=== PATIENT | male | born 1955 | race African-American/Black ===

== ENCOUNTER 2017-03-04 08:20 | Inpatient (IN) | payer OTHER ==
[2017-03-04 08:56] VITALS: BMI 25.1
--- NOTE | 2017-03-04 12:15 | HP ---
CIWA Score - CIWA Score Nausea/Vomitin-Mild Nausea/No Vomiting Muscle Tremors: 3 Anxiety: 4-Mod. Anxious/Guarded Agitation: 4-Moderately Restless Paroxysmal Sweats: 3 Orientation: 0-Oriented Tacttile Disturbances: 0-None Auditory Disturbances: 0-None Visual Disturbances: 0-None Headache: 0-None Present CIWA-Ar Total Score: 15 Admission ROS S - HPI Chief Complaint: Withdrawal sx. Allergies/Adverse Reactions: Allergies Allergy/AdvReac Type Severity Reaction Status Date / Time Fish Containing Products Allergy Mild Hives Verified 10/18/13 18:22 lactose Allergy Mild Verified 03/04/17 10:44 No Known Drug Allergies Allergy Verified 10/18/13 18:22 History of Present Illness: 61 y/o man with a long hx. of alcoholism is admitted for detox. Pt. has been in previous detox, denies significant sobriety. Pt. is currently on lasix, aldactone, lactulose & cipro for cirrhosis of the liver with ascites. Pt. reports recent paracenthesis. Exam Limitations: No Limitations - Ebola screening Have you traveled outside of the country in the last 21 days: No Have you had contact with anyone from an Ebola affected area: No Have you been sick,other than usual withdrawal symptoms: No Do you have a fever: No - Review of Systems Constitutional: Diaphoresis EENT: reports: No Symptoms Reported Respiratory: reports: No Symptoms reported Cardiac: reports: No Symptoms Reported GI: reports: Nausea, Abdominal cramping : reports: No Symptoms Reported Musculoskeletal: reports: No Symptoms Reported Integumentary: reports: Sweating Neuro: reports: Seizure (Alcohl withdrawal), Tremors Endocrine: reports: No Symptoms Reported Hematology: reports: No Symptoms Reported Psychiatric: reports: No Sypmtoms Reported Other Systems: Reviewed and Negative Patient History - Patient Medical History Hx Anemia: Yes Hx Asthma: No Hx Chronic Obstructive Pulmonary Disease (COPD): No Hx Cancer: No Hx Cardiac Disorders: No Hx Congestive Heart Failure: No Hx Hypertension: No Hx Hypercholesterolemia: No Hx Pacemaker: No HX Cerebrovascular Accident: No Hx Seizures: Yes (etoh seizures 20 yrs ago.) Hx Dementia: No Hx Diabetes: No Hx Gastrointestinal Disorders: No Hx Liver Disease: Yes (cirrhosis) Hx Genitourinary Disorders: No Hx Sexually Transmitted Disorders: No Hx Renal Disease (ESRD): No Hx Thyroid Disease: No Hx Human Immunodeficiency Virus (HIV): No Hx Hepatitis C: Yes Hx Depression: Yes Hx Suicide Attempt: No Hx Bipolar Disorder: Yes (stopped seroquel,celexa & trazodone) Hx Schizophrenia: No Other Medical History: Lactose intolerance - Patient Surgical History Past Surgical History: Yes Hx Abdominal Surgery: Yes (umbillical hernia repair.) Hx Orthopedic Surgery: Yes (R ankle surgery 2012) Other Surgical History: L KNEE SURGERY 5 YEARS AGO Fx L mandible Anesthesia Reaction: No - PPD History Previous Implant?: Yes Documented Results: Negative w/proof Implanted On Prior [facility] Admission?: Yes Date: 10/20/13 Results: 0 mm PPD to be Administered?: Yes - Smoking Cessation Smoking history: Current every day smoker Have you smoked in the past 12 months: Yes Aproximately how many cigarettes per day: 4 Hx Chewing Tobacco Use: No Initiated information on smoking cessation: Yes 'Breaking Loose' booklet given: 03/04/17 - Substance & Tx. History Hx Alcohol Use: Yes Hx Substance Use: Yes Substance Use Type: Alcohol, Cocaine Hx Substance Use Treatment: Yes (Last detox at [place] can't remember when) - Substances Abused Alcohol Route: Oral Frequency: Daily Amount used: 2-3 pints vodka Age of first use: 13 Date of Last Use: 03/03/17 Cocaine Route: Inhalation Frequency: 1-2 times per week Amount used: $20 Age of first use: 39 Date of Last Use: 02/28/17 Family Disease History - Family Disease History Family Disease History: [place]: Father (prostate ) Admission Physical Exam [facility] - Vital Signs Vital Signs: Vital Signs - 24 hr 03/04/17 08:54 Temperature 98.8 F Pulse Rate 90 Respiratory 18 Rate Blood Pressure 130/82 - Physical General Appearance: Yes: Tremorous, Sweating, Anxious HEENTM: Yes: Within Normal Limits Respiratory: Yes: Chest Non-Tender, Lungs Clear, Normal Breath Sounds Neck: Yes: Supple Breast: Yes: Breast Exam Deferred Cardiology: Yes: Regular Rhythm, Regular Rate, S1, S2 Abdominal: Yes: Normal Bowel Sounds, Non Tender, Soft, Other (everted with shifting dullness) Genitourinary: Yes: Within Normal Limits Back: Yes: Within Normal Limits Musculoskeletal: Yes: Within Normal Limits Extremities: Yes: Tremors, Pedal Edema (2+) Neurological: Yes: Fully Oriented, Alert Integumentary: Yes: Diaphoresis Lymphatic: Yes: Within Normal Limits - Diagnostic (1) Alcohol dependence with uncomplicated withdrawal Current Visit: Yes Status: Acute (2) Cocaine dependence, uncomplicated Current Visit: Yes Status: Acute (3) Hepatic cirrhosis Current Visit: Yes Status: Acute Qualifiers: Hepatic cirrhosis type: alcoholic cirrhosis Ascites presence: with ascites Qualified Code(s): K70.31 - Alcoholic cirrhosis of liver with ascites (4) Edema of lower extremity Current Visit: Yes Status: Acute (5) Nicotine dependence Current Visit: No Status: Acute Qualifiers: Nicotine product type: cigarettes Substance use status: uncomplicated Qualified Code(s): F17.210 - Nicotine dependence, cigarettes, uncomplicated (6) Hep C w/o coma, chronic Current Visit: Yes Status: Acute [facility] Breath Alcohol Content Breath Alcohol Content: 0 Urine Drug Screen - Results Drug Screen Negative: No Urine Drug Screen Results: FÁTIMA-Cocaine
[2017-03-04] MEDS ORDERED: LOPERAMIDE HCL 2 MG CAPSULE PO PRN (12:34)
[2017-03-04] MEDS ORDERED: diphenhydrAMINE HCL 50 MG CAPSULE PO PRN (12:34)
[2017-03-04] MEDS ORDERED: NICOTINE POLACRILEX 2 MG GUM BUC PRN (12:34)
[2017-03-04] MEDS ORDERED: guaiFENesin/D-METHORPHAN HB 10 ML UNIT-DOSE CUPS PO PRN (12:34)
[2017-03-04] MEDS ORDERED: ACETAMINOPHEN 325 MG TABLET (FP) PO PRN (12:34)
[2017-03-04] MEDS ORDERED: MENTHOL/PHENOL 1 EACH UD MM PRN (12:34)
[2017-03-04] MEDS ORDERED: IBUPROFEN 400 MG TABLET (FP) PO PRN (12:34)
[2017-03-04] MEDS ORDERED: chlordiazePOXIDE HCL 25 MG CAPSULE PO PRN (12:34)
[2017-03-04] MEDS ORDERED: MAG HYDROX/AL HYDROX/SIMETH 30 ML UNIT-DOSE CUP PO PRN (12:34)
[2017-03-04] MEDS ORDERED: MAGNESIUM CITRATE 300 ML BOTTLE PO PRN (12:34)
[2017-03-04] MEDS ORDERED: hydrOXYzine PAMOATE 50 MG CAPSULE (FP) PO PRN (12:34)
[2017-03-04] MEDS ORDERED: P-EPHED 60MG/TRIPROLIDI 2.5MG TABLET PO PRN (12:34)
[2017-03-04] MEDS ORDERED: MAGNESIUM HYDROX 2400MG/30ML ORAL SUSPENSION 30 ML CUP PO PRN (12:34)
[2017-03-04] MEDS ORDERED: chlordiazePOXIDE HCL 25 MG CAPSULE PO ONE (13:00)
[2017-03-04] MEDS: FUROSEMIDE 20 MG TABLET (FP) PO SCH (13:31)
[2017-03-04] MEDS: NICOTINE 14 MG/24 HOURS TOPICAL PATCH TD SCH (13:32)
[2017-03-04 16:54] LABS: URINE APPEARANCE CLOUDY; URINE BLOOD NEGATIVE (NEGATIVE); URINE COLOR AMBER; URINE GLUCOSE (UA) NEGATIVE (NEGATIVE); URINE KETONE NEGATIVE (NEGATIVE); URINE LEUK ESTERASE NEGATIVE (NEGATIVE); URINE NITRITE NEGATIVE (NEGATIVE); URINE PROTEIN NEGATIVE (NEGATIVE); URINE UROBILINOGEN 4.0 E.U/dl mg/dL (0.2-1.0)
[2017-03-04] MEDS: SPIRONOLACTONE 25 MG TABLET (FP) PO SCH (19:20)
[2017-03-04] MEDS: CIPROFLOXACIN HCL 500 MG PO SCH (19:20)
[2017-03-04] MEDS: chlordiazePOXIDE HCL 25 MG CAPSULE PO SCH ×2 (19:20→22:08)
--- NOTE | 2017-03-04 19:26 | CONSULT ---
[facility] Psychiatric Consult - Data Date of interview: 03/04/17 Admission source: [facility] Identifying data: Readmission to [facility] for this 61 y/o AA male seeking detox treatment on for alcohol and cocaine dependence.Patient is ,a father of two,homeless,unemployed and supported on SSI benefits. Substance Abuse History: Discussed with patient in this interview.Mr Overton confirms this report. Smoking Cessation. Smoking history: Current every day smoker. Have you smoked in the past 12 months: Yes. Aproximately how many cigarettes per day: 4. Hx Chewing Tobacco Use: No. Initiated information on smoking cessation: Yes. 'Breaking Loose' booklet given: 03/04/17. - Substance & Tx. History. Hx Alcohol Use: Yes. Hx Substance Use: Yes. Substance Use Type : Alcohol, Cocaine. Hx Substance Use Treatment: Yes (Last detox at [place] can 't remember when). - Substances Abused. Alcohol. Route: Oral. Frequency: Daily. Amount used: 2-3 pints vodka. Age of first use: 13. Date of Last Use: 03/03/17. Cocaine. Route: Inhalation. Frequency: 1-2 times per week. Amount used: $20. Age of first use: 39. Date of Last Use: 02/28/17 Medical History: Consistent with hepatitis C,liver cirrhosis and anemia.Noted history of umbilical herniorraphy and orthosurgery (right ankle + left knee ++ fracture of left mandible). Psychiatric History: Patient reports a psychiatric hospitalization at [facility] (2005).Diagnosed with Bipolar Disorder.Lost to follow up for several years.Mr Overton reports that he has been off psychotropic medications (own decision) for many years.No OPD care.Denies history of suicide attempts. Physical/Sexual Abuse/Trauma History: Patient denies. Additional Comment: Urine Drug Screen Results: FÁTIMA-Cocaine.Noted. Mental Status Exam - Mental Status Exam Alert and Oriented to: Time, Place, Person Cognitive Function: Good Patient Appearance: Well Groomed Mood: Withdrawn, Hopeful, Euthymic Affect: Normal Range Patient Behavior: Fatigued, Appropriate, Cooperative Speech Pattern: Clear Voice Loudness: Normal Thought Process: Goal Oriented Thought Disorder: Not Present Hallucinations: Denies Suicidal Ideation: Denies Homicidal Ideation: Denies Insight/Judgement: Poor Sleep: Poorly, Difficulty falling asleep Appetite: Good Muscle strength/Tone: Normal Gait/Station: Normal Psychiatric Findings - Problem List (Maurice 1, 2,3) (1) Alcohol dependence with uncomplicated withdrawal Current Visit: Yes Status: Acute (2) Cocaine dependence, uncomplicated Current Visit: Yes Status: Acute (3) Nicotine dependence Current Visit: Yes Status: Acute Qualifiers: Nicotine product type: cigarettes Substance use status: uncomplicated Qualified Code(s): F17.210 - Nicotine dependence, cigarettes, uncomplicated (4) Substance induced mood disorder Current Visit: Yes Status: Acute (5) Hep C w/o coma, chronic Current Visit: Yes Status: Chronic (6) Hepatic cirrhosis Current Visit: Yes Status: Chronic Qualifiers: Hepatic cirrhosis type: alcoholic cirrhosis Ascites presence: with ascites Qualified Code(s): K70.31 - Alcoholic cirrhosis of liver with ascites (7) Insomnia Current Visit: Yes Status: Acute - Initial Treatment Plan Initial Treatment Plan: Psychoeducation.Detoxification.Ambien 5 mg po hs prn.Parasomnias and benefits of sleep hygiene are discussed with patient.He is in agreement with this careplan.Observation.
[2017-03-04] MEDS ORDERED: ZOLPIDEM TARTRATE 5 MG TABLET PO PRN (22:00)
[2017-03-04] MEDS: THIAMINE HCL 100 MG TABLET (FP) PO SCH (22:08)
[2017-03-05] MEDS: chlordiazePOXIDE HCL 25 MG CAPSULE PO SCH ×4 (05:31→22:13)
[2017-03-05] MEDS: FUROSEMIDE 20 MG TABLET (FP) PO SCH ×2 (05:31→15:08)
[2017-03-05] MEDS: CIPROFLOXACIN HCL 500 MG PO SCH (05:32)
[2017-03-05] MEDS: PRENATAL VITAMINS W/ FOLIC ACID TABLET (FP) PO SCH (10:09)
[2017-03-05] MEDS: SPIRONOLACTONE 25 MG TABLET (FP) PO SCH ×2 (10:10→17:33)
[2017-03-05] MEDS: NICOTINE 14 MG/24 HOURS TOPICAL PATCH TD SCH (10:10)
[2017-03-05 11:00] LABS: MCH 30.6 pg (25.7-33.7); MCHC 32.5 g/dl (32.0-35.9); MEAN PLT VOLUME 10.4 fl (7.5-11.1); PLATELET COUNT 54 K/MM3 (134-434); RDW 22.5 % (11.9-15.9); WHITE BLOOD COUNT 2.5 K/mm3 (4.0-10.0)
[2017-03-05 11:23] LABS: ALBUMIN 1.3 g/dl (3.4-5.0); ALK PHOS 139 U/L (45-117); ANION GAP 6 (8-16); BILIRUBIN,TOTAL 4.6 mg/dL (0.2-1.0); CALCIUM 7.8 mg/dL (8.5-10.1); CO2 27 mmol/L (21-32); CREATININE 0.7 mg/dL (0.7-1.3); GLUCOSE,RANDOM 107 mg/dL (74-106); SGOT/AST 75 U/L (15-37); SGPT/ALT 28 U/L (12-78); TOT PROT 6.8 g/dl (6.4-8.2)
[2017-03-05 12:19] LABS: HIV 1 & 2 AB NEGATIVE; HIV 1 AGp24 NEGATIVE
--- NOTE | 2017-03-05 15:04 | PN ---
S CIWA - CIWA Score Nausea/Vomitin-Mild Nausea/No Vomiting Muscle Tremors: 5 Anxiety: 3 Agitation: 2 Paroxysmal Sweats: 3 Orientation: 0-Oriented Tacttile Disturbances: 0-None Auditory Disturbances: 2-Mild Harshness/Frighten Visual Disturbances: 0-None Headache: 0-None Present CIWA-Ar Total Score: 16 S Progress Note (SOAP) Subjective: Sweating, Anxious, Tremors. Objective: PT. A & O X 3, OBSERVED AMBULATING ON UNIT. NO ACUTE DISTRESS. 03/05/17 15:02 Vital Signs Temperature 97.0 F L 03/05/17 13:44 Pulse Rate 84 03/05/17 13:44 Respiratory Rate 20 03/05/17 13:44 Blood Pressure 117/76 03/05/17 13:44 O2 Sat by Pulse Oximetry (%) Laboratory Tests 03/04/17 03/05/17 03/05/17 15:26 08:00 08:00 WBC 2.5 L RBC 2.96 L Hgb 9.0 L D Hct 27.8 L D MCV 94.0 MCH 30.6 D MCHC 32.5 RDW 22.5 H D Plt Count 54 L MPV 10.4 Sodium Potassium Chloride Carbon Dioxide Anion Gap BUN Creatinine Creat Clearance w eGFR Random Glucose Calcium Total Bilirubin AST ALT Alkaline Phosphatase Total Protein Albumin Urine Color Roberta Urine Appearance Cloudy Urine pH 8.0 D Ur Specific [place] 1.015 Urine Protein Negative Urine Glucose (UA) Negative Urine Ketones Negative Urine Blood Negative Urine Nitrite Negative Urine Bilirubin 2.0 Urine Urobilinogen 4.0 e.u/dl Ur Leukocyte Esterase Negative RPR Titer HIV 1&2 Antibody Screen Negative HIV P24 Antigen Negative 03/05/17 03/05/17 08:00 08:00 WBC RBC Hgb Hct MCV MCH MCHC RDW Plt Count MPV Sodium 135 L Potassium 3.9 Chloride 102 Carbon Dioxide 27 Anion Gap 6 L BUN 10 Creatinine 0.7 Creat Clearance w eGFR > 60 Random Glucose 107 H Calcium 7.8 L Total Bilirubin 4.6 H D AST 75 H ALT 28 D Alkaline Phosphatase 139 H D Total Protein 6.8 Albumin 1.3 L D Urine Color Urine Appearance Urine pH Ur Specific [place] Urine Protein Urine Glucose (UA) Urine Ketones Urine Blood Urine Nitrite Urine Bilirubin Urine Urobilinogen Ur Leukocyte Esterase RPR Titer Nonreactive HIV 1&2 Antibody Screen HIV P24 Antigen LABS NOTED. Assessment: 03/05/17 15:03 WITHDRAWAL SYMPTOMS. Plan: CONTINUE DETOX. START FEOSOL, 325 MG PO TID WITH MEALS. REPEAT CBC ON 03/07/2017 FOR ABNORMAL ADMISSION VALUES.
[2017-03-05] MEDS: FERROUS SO4 325 MG TABLET (FP) PO SCH (17:33)
--- NOTE | 2017-03-05 18:46 | EKG ---
Test Reason : Blood Pressure : / mmHG Vent. Rate : 063 BPM Atrial Rate : 063 BPM P-R Int : 150 ms QRS Dur : 088 ms QT Int : 448 ms P-R-T Axes : 059 -11 001 degrees QTc Int : 458 ms NORMAL SINUS RHYTHM WITH SINUS ARRHYTHMIA NONSPECIFIC T WAVE ABNORMALITY ABNORMAL ECG NO PREVIOUS ECGS AVAILABLE Confirmed by NIKKIE ZAMORA MD ([id number]) on 03/05/2017 6:45:47 PM Referred By: Confirmed By:NIKKIE ZAMORA MD
[2017-03-05] MEDS: THIAMINE HCL 100 MG TABLET (FP) PO SCH (22:13)
[2017-03-06] MEDS: chlordiazePOXIDE HCL 25 MG CAPSULE PO SCH ×2 (05:40→10:21)
[2017-03-06] MEDS: FUROSEMIDE 20 MG TABLET (FP) PO SCH ×2 (05:40→14:57)
[2017-03-06] MEDS: CIPROFLOXACIN HCL 500 MG PO SCH (06:11)
[2017-03-06] MEDS: FERROUS SO4 325 MG TABLET (FP) PO SCH ×3 (07:36→17:18)
[2017-03-06] MEDS: SPIRONOLACTONE 25 MG TABLET (FP) PO SCH ×2 (10:21→17:20)
[2017-03-06] MEDS: NICOTINE 14 MG/24 HOURS TOPICAL PATCH TD SCH (10:21)
[2017-03-06] MEDS: PRENATAL VITAMINS W/ FOLIC ACID TABLET (FP) PO SCH (10:21)
--- NOTE | 2017-03-06 14:39 | PN ---
S Progress Note (SOAP) Subjective: Interrupted sleep due to water pill as per patient, (patient stated he is taking water pill for edema in his legs and that he was Rx 2 water pills prior to coming here but the swelling in his legs have improved and he was only taking one of the water pill PRN at home. He reports swelling in legs due to sleeping in chair at his senior care); anxious, nausea, sweating Objective: 03/06/17 14:36 Last Vital Signs Temp Pulse Resp BP Pulse Ox 98.8 F 98 H 18 117/78 03/06/17 13:36 03/06/17 13:36 03/06/17 13:36 03/06/17 13:36 Laboratory Tests 03/04/17 03/05/17 03/05/17 15:26 08:00 08:00 WBC 2.5 L RBC 2.96 L Hgb 9.0 L D Hct 27.8 L D MCV 94.0 MCH 30.6 D MCHC 32.5 RDW 22.5 H D Plt Count 54 L MPV 10.4 Sodium Potassium Chloride Carbon Dioxide Anion Gap BUN Creatinine Creat Clearance w eGFR Random Glucose Calcium Total Bilirubin AST ALT Alkaline Phosphatase Total Protein Albumin Urine Color Roberta Urine Appearance Cloudy Urine pH 8.0 D Ur Specific [place] 1.015 Urine Protein Negative Urine Glucose (UA) Negative Urine Ketones Negative Urine Blood Negative Urine Nitrite Negative Urine Bilirubin 2.0 Urine Urobilinogen 4.0 e.u/dl Ur Leukocyte Esterase Negative RPR Titer HIV 1&2 Antibody Screen Negative HIV P24 Antigen Negative 03/05/17 03/05/17 08:00 08:00 WBC RBC Hgb Hct MCV MCH MCHC RDW Plt Count MPV Sodium 135 L Potassium 3.9 Chloride 102 Carbon Dioxide 27 Anion Gap 6 L BUN 10 Creatinine 0.7 Creat Clearance w eGFR > 60 Random Glucose 107 H Calcium 7.8 L Total Bilirubin 4.6 H D AST 75 H ALT 28 D Alkaline Phosphatase 139 H D Total Protein 6.8 Albumin 1.3 L D Urine Color Urine Appearance Urine pH Ur Specific [place] Urine Protein Urine Glucose (UA) Urine Ketones Urine Blood Urine Nitrite Urine Bilirubin Urine Urobilinogen Ur Leukocyte Esterase RPR Titer Nonreactive HIV 1&2 Antibody Screen HIV P24 Antigen Labs noted: wbc 2.5, rbc 2.96, h/h 9/27.8, plt 54, total bilirubin 4.6 Assessment: 03/06/17 14:40 Withdrawal symptoms Noted with pancytopenia and hyperbilirubinemia Plan: Continue detox Pancytopenia: monitor for s/sx of infection, encouraged good hand washing with soap and water, repeat CBC and send iron studies in AM Hyperbilirubinemia possibly due to hepatitis C: repeat LFTs
[2017-03-06] MEDS: chlordiazePOXIDE 5 MG CAPSULE PO SCH ×2 (17:18→22:05)
[2017-03-06] MEDS: THIAMINE HCL 100 MG TABLET (FP) PO SCH (22:05)
[2017-03-07] MEDS: chlordiazePOXIDE 5 MG CAPSULE PO SCH ×2 (05:32→10:23)
[2017-03-07] MEDS: FUROSEMIDE 20 MG TABLET (FP) PO SCH ×2 (05:32→14:59)
[2017-03-07] MEDS: CIPROFLOXACIN HCL 500 MG PO SCH (05:35)
[2017-03-07] MEDS: FERROUS SO4 325 MG TABLET (FP) PO SCH ×3 (07:22→17:17)
[2017-03-07 10:04] LABS: MCH 30.2 pg (25.7-33.7); MCHC 31.8 g/dl (32.0-35.9); MEAN CELL VOLUME 94.9 fl (80-96); MEAN PLT VOLUME 10.6 fl (7.5-11.1); PLATELET COUNT 70 K/MM3 (134-434); RDW 23.3 % (11.9-15.9); WHITE BLOOD COUNT 3.3 K/mm3 (4.0-10.0)
[2017-03-07] MEDS: NICOTINE 14 MG/24 HOURS TOPICAL PATCH TD SCH (10:23)
[2017-03-07] MEDS: SPIRONOLACTONE 25 MG TABLET (FP) PO SCH ×2 (10:23→17:17)
[2017-03-07] MEDS: PRENATAL VITAMINS W/ FOLIC ACID TABLET (FP) PO SCH (10:23)
[2017-03-07 10:35] LABS: ALBUMIN 1.6 g/dl (3.4-5.0); BILIRUBIN,DIRECT 3.8 mg/dL (0.0-0.2); BILIRUBIN,TOTAL 4.7 mg/dL (0.2-1.0); TOT PROT 8.1 g/dl (6.4-8.2)
--- NOTE | 2017-03-07 12:35 | PN ---
[facility] Progress Note (SOAP) Subjective: Anxious. Objective: PT. A & O X 3, OBSERVED AMBULATING ON UNIT. NO ACUTE DISTRESS. 03/07/17 12:33 Vital Signs Temperature 98.5 F 03/07/17 09:26 Pulse Rate 84 03/07/17 09:26 Respiratory Rate 18 03/07/17 09:26 Blood Pressure 109/77 03/07/17 09:26 O2 Sat by Pulse Oximetry (%) Laboratory Tests 03/04/17 03/05/17 03/05/17 15:26 08:00 08:00 WBC 2.5 L RBC 2.96 L Hgb 9.0 L D Hct 27.8 L D MCV 94.0 MCH 30.6 D MCHC 32.5 RDW 22.5 H D Plt Count 54 L MPV 10.4 Neutrophils % Lymphocytes % Sodium Potassium Chloride Carbon Dioxide Anion Gap BUN Creatinine Creat Clearance w eGFR Random Glucose Calcium Total Bilirubin Direct Bilirubin AST ALT Alkaline Phosphatase Total Protein Albumin Vitamin B12 Serum Folate Urine Color Roberta Urine Appearance Cloudy Urine pH 8.0 D Ur Specific [place] 1.015 Urine Protein Negative Urine Glucose (UA) Negative Urine Ketones Negative Urine Blood Negative Urine Nitrite Negative Urine Bilirubin 2.0 Urine Urobilinogen 4.0 e.u/dl Ur Leukocyte Esterase Negative RPR Titer HIV 1&2 Antibody Screen Negative HIV P24 Antigen Negative 03/05/17 03/05/17 03/07/17 08:00 08:00 07:00 WBC 3.3 L D RBC 3.42 L Hgb 10.4 L D Hct 32.5 L D MCV 94.9 MCH 30.2 MCHC 31.8 L RDW 23.3 H Plt Count 70 L D MPV 10.6 Neutrophils % Y Lymphocytes % Y Sodium 135 L Potassium 3.9 Chloride 102 Carbon Dioxide 27 Anion Gap 6 L BUN 10 Creatinine 0.7 Creat Clearance w eGFR > 60 Random Glucose 107 H Calcium 7.8 L Total Bilirubin 4.6 H D Direct Bilirubin AST 75 H ALT 28 D Alkaline Phosphatase 139 H D Total Protein 6.8 Albumin 1.3 L D Vitamin B12 Serum Folate Urine Color Urine Appearance Urine pH Ur Specific [place] Urine Protein Urine Glucose (UA) Urine Ketones Urine Blood Urine Nitrite Urine Bilirubin Urine Urobilinogen Ur Leukocyte Esterase RPR Titer Nonreactive HIV 1&2 Antibody Screen HIV P24 Antigen 03/07/17 07:00 WBC RBC Hgb Hct MCV MCH MCHC RDW Plt Count MPV Neutrophils % Lymphocytes % Sodium Potassium Chloride Carbon Dioxide Anion Gap BUN Creatinine Creat Clearance w eGFR Random Glucose Calcium Total Bilirubin 4.7 H Direct Bilirubin 3.8 H D AST 83 H ALT 33 Alkaline Phosphatase 148 H Total Protein 8.1 Albumin 1.6 L D Vitamin B12 1917 H Serum Folate 17 Urine Color Urine Appearance Urine pH Ur Specific [place] Urine Protein Urine Glucose (UA) Urine Ketones Urine Blood Urine Nitrite Urine Bilirubin Urine Urobilinogen Ur Leukocyte Esterase RPR Titer HIV 1&2 Antibody Screen HIV P24 Antigen LABS NOTED. RESULTS OF REPEAT CBC AND COMP. META. NOTED. IRON STUDIES RESULTS PENDING. 03/07/17 12:36 Assessment: 03/07/17 12:34 WITHDRAWAL SYMPTOMS. Plan: CONTINUE DETOX. COPIES OF ALL LABS DRAWN WHILE ADMITTED FOR DETOX GIVEN TO PATIENT TO TAKE TO [facility] WITH HIM FOR FURTHER MEDICAL EVALUATION AFTER DETOX.
[2017-03-07 12:43] LABS: ANISOCYTOSIS 2+; MACROCYTOSIS 2+; MICROCYTOSIS FEW; TARGET CELLS 2+
[2017-03-07 12:44] LABS: PLATELET ESTIMATE DECREASED; REACTIVE LYMPHOCYTES 1 % (0-80); TOTAL CELLS COUNTED 100
[2017-03-07] MEDS: chlordiazePOXIDE HCL 10 MG CAPSULE PO SCH ×2 (17:17→22:05)
[2017-03-07] MEDS: THIAMINE HCL 100 MG TABLET (FP) PO SCH (22:05)
[2017-03-08] MEDS: chlordiazePOXIDE HCL 10 MG CAPSULE PO SCH (05:34)
[2017-03-08] MEDS: FUROSEMIDE 20 MG TABLET (FP) PO SCH (05:34)
[2017-03-08] MEDS: CIPROFLOXACIN HCL 500 MG PO SCH (05:34)
[2017-03-08 06:06] LABS: SERUM IRON 105 ug/dL (38-169); TOTAL IRON BINDING CAPACITY 220 ug/dL (250-450); UIBC 115 ug/dL (111-343)
[2017-03-08] MEDS: FERROUS SO4 325 MG TABLET (FP) PO SCH (07:28)
[2017-03-08 09:12] VITALS: BP 122/88; PULSE 87; TEMP 97.3
[2017-03-08] MEDS: SPIRONOLACTONE 25 MG TABLET (FP) PO SCH (09:12)
[2017-03-08] MEDS: PRENATAL VITAMINS W/ FOLIC ACID TABLET (FP) PO SCH (09:13)
--- NOTE | 2017-03-08 12:40 | DS ---
[facility] Detox Discharge Summary Admission Date: 03/04/17 Discharge Date: 03/08/17 - History Present History: Alcohol Dependence Additional Comments: PATIENT ELECTING TO GO HOME. PATIENT ADVISED TO FOLLOW-UP WITH LOCAL 12-STEP / AA PROGRAMS FOR AFTERCARE. PATIENT ADVISED TO COMPLETE FULL COURSE OF ANTIBIOTIC (CIPROFLOXACIN) PRESCRIBED TO HIM PRIOR TO AND DURING ADMISSION TO DETOX. PATIENT WAS DISCHARGED FROM UNIT IN STABLE MEDICAL CONDITION. Pertinent Past History: Hep C, Hepatic Cirrhosis, Edema of Lower Extremity, Anemia, Bipolar Disorder, Depression. - Physical Exam Results Vital Signs: Vital Signs Temperature 97.3 F L 03/08/17 09:11 Pulse Rate 87 03/08/17 09:11 Respiratory Rate 18 03/08/17 09:11 Blood Pressure 122/88 03/08/17 09:11 O2 Sat by Pulse Oximetry (%) Pertinent Admission Physical Exam Findings: WITHDRAWAL SYMPTOMS. Laboratory Tests 03/04/17 03/05/17 03/05/17 15:26 08:00 08:00 WBC 2.5 L RBC 2.96 L Hgb 9.0 L D Hct 27.8 L D MCV 94.0 MCH 30.6 D MCHC 32.5 RDW 22.5 H D Plt Count 54 L MPV 10.4 Neutrophils % Neutrophils % (Manual) Lymphocytes % Lymphocytes % (Manual) Monocytes % (Manual) Eosinophils % (Manual) Platelet Estimate Anisocytosis Microcytosis Macrocytosis Target Cells Sodium Potassium Chloride Carbon Dioxide Anion Gap BUN Creatinine Creat Clearance w eGFR Random Glucose Calcium Iron TIBC Iron Saturation Total Bilirubin Direct Bilirubin AST ALT Alkaline Phosphatase Total Protein Albumin Vitamin B12 Serum Folate Urine Color Roberta Urine Appearance Cloudy Urine pH 8.0 D Ur Specific [place] 1.015 Urine Protein Negative Urine Glucose (UA) Negative Urine Ketones Negative Urine Blood Negative Urine Nitrite Negative Urine Bilirubin 2.0 Urine Urobilinogen 4.0 e.u/dl Ur Leukocyte Esterase Negative RPR Titer HIV 1&2 Antibody Screen Negative HIV P24 Antigen Negative 03/05/17 03/05/17 03/07/17 08:00 08:00 07:00 WBC 3.3 L D RBC 3.42 L Hgb 10.4 L D Hct 32.5 L D MCV 94.9 MCH 30.2 MCHC 31.8 L RDW 23.3 H Plt Count 70 L D MPV 10.6 Neutrophils % Y Neutrophils % (Manual) 41 L Lymphocytes % Y Lymphocytes % (Manual) 40 Monocytes % (Manual) 15 H Eosinophils % (Manual) 3 Platelet Estimate Decreased Anisocytosis 2+ Microcytosis Few Macrocytosis 2+ Target Cells 2+ Sodium 135 L Potassium 3.9 Chloride 102 Carbon Dioxide 27 Anion Gap 6 L BUN 10 Creatinine 0.7 Creat Clearance w eGFR > 60 Random Glucose 107 H Calcium 7.8 L Iron TIBC Iron Saturation Total Bilirubin 4.6 H D Direct Bilirubin AST 75 H ALT 28 D Alkaline Phosphatase 139 H D Total Protein 6.8 Albumin 1.3 L D Vitamin B12 Serum Folate Urine Color Urine Appearance Urine pH Ur Specific [place] Urine Protein Urine Glucose (UA) Urine Ketones Urine Blood Urine Nitrite Urine Bilirubin Urine Urobilinogen Ur Leukocyte Esterase RPR Titer Nonreactive HIV 1&2 Antibody Screen HIV P24 Antigen 03/07/17 03/07/17 07:00 07:00 WBC RBC Hgb Hct MCV MCH MCHC RDW Plt Count MPV Neutrophils % Neutrophils % (Manual) Lymphocytes % Lymphocytes % (Manual) Monocytes % (Manual) Eosinophils % (Manual) Platelet Estimate Anisocytosis Microcytosis Macrocytosis Target Cells Sodium Potassium Chloride Carbon Dioxide Anion Gap BUN Creatinine Creat Clearance w eGFR Random Glucose Calcium Iron 105 TIBC 220 L Iron Saturation 48 Total Bilirubin 4.7 H Direct Bilirubin 3.8 H D AST 83 H ALT 33 Alkaline Phosphatase 148 H Total Protein 8.1 Albumin 1.6 L D Vitamin B12 1917 H Serum Folate 17 Urine Color Urine Appearance Urine pH Ur Specific [place] Urine Protein Urine Glucose (UA) Urine Ketones Urine Blood Urine Nitrite Urine Bilirubin Urine Urobilinogen Ur Leukocyte Esterase RPR Titer HIV 1&2 Antibody Screen HIV P24 Antigen LABS NOTED. - Treatment Hospital Course: Detox Protocol Followed, Detoxed Safely, Responded well, Discharged Condition Good Patient has Accepted a Rehab Referral to: PT. GOING HOME. ADVISED TO FOLLOW-UP WITH LOCAL 12-STEP/AA PROGRAMS. - Medication Discharge Medications: Ambulatory Orders Ciprofloxacin HCl [Cipro] 500 mg PO DAILY 03/04/17 Furosemide [Lasix -] 40 mg PO DAILY 03/04/17 Lactulose 30 ml PO DAILY 03/04/17 Spironolactone [Aldactone] 100 mg PO DAILY 03/04/17 - Diagnosis (1) Alcohol dependence with uncomplicated withdrawal Status: Acute (2) Bipolar depression Status: Chronic (3) Cocaine dependence, uncomplicated Status: Acute (4) Edema of lower extremity Status: Acute (5) Insomnia Status: Acute Qualifiers: Insomnia type: unspecified Qualified Code(s): G47.00 - Insomnia, unspecified (6) Nicotine dependence Status: Chronic Qualifiers: Nicotine product type: cigarettes Substance use status: uncomplicated Qualified Code(s): F17.210 - Nicotine dependence, cigarettes, uncomplicated (7) Substance induced mood disorder Status: Acute (8) Hep C w/o coma, chronic Status: Chronic (9) Hepatic cirrhosis Status: Chronic Qualifiers: Hepatic cirrhosis type: alcoholic cirrhosis Ascites presence: with ascites Qualified Code(s): K70.31 - Alcoholic cirrhosis of liver with ascites - AMA Did Patient Leave Against Medical Advice: No
== END 2017-03-08 09:31 | disposition home or self-care (01) | DRG 774 ==
LOC: YASAS 08:20 → Y3N 12:52
PROVIDERS: ADMIT Internal Medicine; ATTEND Internal Medicine
PROC: HZ2ZZZZ Detoxification Services for Substance Abuse Treatment (ICD-10-PCS; principal; 2017-03-08)
DX: F10.230 Alcohol dependence with withdrawal, uncomplicated (principal); F14.20 Cocaine dependence, uncomplicated; F17.210 Nicotine dependence, cigarettes, uncomplicated; F19.24 Other psychoactive substance dependence with psychoactive substance-induced mood disorder; F31.9 Bipolar disorder, unspecified; G47.00 Insomnia, unspecified; R60.0 Localized edema; B18.2 Chronic viral hepatitis C; K70.31 Alcoholic cirrhosis of liver with ascites
CPT/HCPCS: 36415; 80053; 80076; 81003; 82607; 82746; 83540; 83550; 85025; 85027; 86593; 87389; 93005; 93010

== ENCOUNTER 2017-05-04 19:10 | Inpatient (IN) | payer OTHER ==
[2017-05-04 19:59] VITALS: BMI 24.3
--- NOTE | 2017-05-04 20:23 | HP ---
Admission [facility] Chief Complaint: i am here for rehab from alcohol and cocaine Allergies/Adverse Reactions: Allergies Allergy/AdvReac Type Severity Reaction Status Date / Time Fish Containing Products Allergy Mild Hives Verified 10/18/13 18:22 lactose Allergy Mild Verified 05/04/17 20:07 No Known Drug Allergies Allergy Verified 10/18/13 18:22 History of Present Illness: this 61 years old male iwth alcohol dependence and cocaine dependence,seeking rehab,last treatment [facility] 03/04/17 to 03/08/17 hepatitis c loss of lower denture and eye glass in [place] 2 months ago admitted to [facility] for depression from 04/08/17 to 05/04/17 lonest period sobriety 3 and a half years Exam Limitations: No Limitations - Ebola screening Have you traveled outside of the country in the last 21 days: No Have you had contact with anyone from an Ebola affected area: No Have you been sick,other than usual withdrawal symptoms: No Do you have a fever: No - Review of Systems Constitutional: No Symptoms Reported EENT: reports: Dental Problems (loss lower denture 2 months) Respiratory: reports: No Symptoms reported Cardiac: reports: No Symptoms Reported GI: reports: No Symptoms Reported : reports: No Symptoms Reported Musculoskeletal: reports: No Symptoms Reported Integumentary: reports: No Symptoms Reported Neuro: reports: No Symptoms reported Endocrine: reports: No Symptoms Reported Hematology: reports: No Symptoms Reported Psychiatric: reports: No Sypmtoms Reported, Judgement Intact, Mood/Affect Appropiate, Depressed Patient History - Patient Medical History Hx Anemia: Yes (no med) Hx Asthma: No Hx Chronic Obstructive Pulmonary Disease (COPD): No Hx Cancer: No Hx Cardiac Disorders: No Hx Congestive Heart Failure: No Hx Hypertension: No Hx Hypercholesterolemia: No Hx Pacemaker: No HX Cerebrovascular Accident: No Hx Seizures: Yes (etoh seizures 20 yrs ago.) Hx Dementia: No Hx Diabetes: No Hx Gastrointestinal Disorders: No Hx Liver Disease: Yes (cirrhosis) Hx Genitourinary Disorders: No Hx Sexually Transmitted Disorders: No Hx Renal Disease (ESRD): No Hx Thyroid Disease: No Hx Human Immunodeficiency Virus (HIV): No Hx Hepatitis C: Yes (no treatment) Hx Depression: Yes Hx Suicide Attempt: No Hx Bipolar Disorder: Yes (stopped seroquel,celexa & trazodone) Hx Schizophrenia: No Other Medical History: no suicidal,no homicidal,umbilical hernia - Patient Surgical History Past Surgical History: Yes Hx Abdominal Surgery: No Hx Orthopedic Surgery: Yes (R ankle surgery 2013) Other Surgical History: L KNEE SURGERY 5 YEARS AGO Fx L mandible Anesthesia Reaction: No - PPD History Previous Implant?: Yes Documented Results: Negative w/proof Date: 03/06/17 Results: 0 mm PPD to be Administered?: No - Smoking Cessation Smoking history: Current every day smoker Have you smoked in the past 12 months: Yes Aproximately how many cigarettes per day: 4 Hx Chewing Tobacco Use: No Initiated information on smoking cessation: Yes 'Breaking Loose' booklet given: 05/04/17 - Substance & Tx. History Hx Alcohol Use: Yes Hx Substance Use: Yes Substance Use Type: Alcohol, Cocaine Hx Substance Use Treatment: Yes ([facility] 03/04/17 to 03/08/17) - Substances Abused Alcohol Route: Oral Frequency: Daily Amount used: 2 to 3 pints Age of first use: 11 Date of Last Use: 04/09/17 Cocaine Route: Inhalation Frequency: 1-3 times last 30 days Amount used: 30$ Age of first use: 44 Date of Last Use: 03/18/17 Family Disease History - Family Disease History Family Disease History: [place]: Father (prostate ) Admission Physical Exam S - Vital Signs Vital Signs: Vital Signs - 24 hr 05/04/17 19:58 Temperature 98.5 F Pulse Rate 88 Respiratory 18 Rate Blood Pressure 114/75 - Physical General Appearance: Yes: Within Normal Limits HEENTM: Yes: Normal ENT Inspection, CAROLINE, Pharynx Normal, Other (loss of denture lower denture) Respiratory: Yes: Lungs Clear, Normal Breath Sounds, No Respiratory Distress Neck: Yes: Within Normal Limits, Supple, Trachea in good position Breast: Yes: Within Normal Limits Cardiology: Yes: Within Normal Limits, Regular Rhythm, Regular Rate, S1, S2 Abdominal: Yes: Normal Bowel Sounds, Non Tender, Soft Genitourinary: Yes: Within Normal Limits Back: Yes: Within Normal Limits Musculoskeletal: Yes: Within Normal Limits Extremities: Yes: Within Normal Limits Neurological: Yes: trouble locater II-XII NML intact, Fully Oriented, Alert, Motor Strength 5/5 Integumentary: Yes: Normal Color Lymphatic: Yes: Within Normal Limits - Diagnostic (1) Alcohol dependence Current Visit: No Status: Acute (2) Cocaine dependence Current Visit: No Status: Acute (3) Bipolar depression Current Visit: No Status: Chronic (4) Nicotine dependence Current Visit: No Status: Chronic Qualifiers: Nicotine product type: cigarettes Substance use status: uncomplicated Qualified Code(s): F17.210 - Nicotine dependence, cigarettes, uncomplicated; F17.210 - Nicotine dependence, cigarettes, uncomplicated (5) Hepatitis C Current Visit: Yes Status: Acute (6) Weight loss Current Visit: Yes Status: Acute (7) Cirrhosis Current Visit: Yes Status: Acute Cleared for Admission [facility] - Detox or Rehab Claeared for Rehab Admission: Yes [facility] Breath Alcohol Content Breath Alcohol Content: 0 Urine Drug Screen - Results Drug Screen Negative: Yes Inpatient Rehab Admission - Initial Determination Are CD services needed?: Yes Free of communicable disease: Yes Not in need of hospitalization: Yes - Rehab Admission Criteria Poor recovery environment: Yes Patient is meeting Inpatient Rehab admission criteria:: Yes
[2017-05-04] MEDS ORDERED: MAGNESIUM CITRATE 300 ML BOTTLE PO PRN (20:38)
[2017-05-04] MEDS ORDERED: LOPERAMIDE HCL 2 MG CAPSULE PO PRN (20:38)
[2017-05-04] MEDS ORDERED: IBUPROFEN 400 MG TABLET (FP) PO PRN (20:38)
[2017-05-04] MEDS ORDERED: guaiFENesin/D-METHORPHAN HB 10 ML UNIT-DOSE CUPS PO PRN (20:38)
[2017-05-04] MEDS ORDERED: MAGNESIUM HYDROX 2400MG/30ML ORAL SUSPENSION 30 ML CUP PO PRN (20:38)
[2017-05-04] MEDS ORDERED: MAG HYDROX/AL HYDROX/SIMETH 30 ML UNIT-DOSE CUP PO PRN (20:38)
[2017-05-04] MEDS ORDERED: hydrOXYzine PAMOATE 25 MG CAPSULE (FP) PO PRN (20:38)
[2017-05-04] MEDS ORDERED: ACETAMINOPHEN 325 MG TABLET (FP) PO PRN (20:38)
[2017-05-04] MEDS ORDERED: diphenhydrAMINE HCL 50 MG CAPSULE PO PRN (20:38)
[2017-05-04] MEDS ORDERED: P-EPHED 60MG/TRIPROLIDI 2.5MG TABLET PO PRN (20:38)
[2017-05-04] MEDS: THIAMINE HCL 100 MG TABLET (FP) PO SCH (22:01)
[2017-05-04] MEDS: traZODone HCL 50 MG TABLET (FP) PO SCH (23:04)
[2017-05-04 23:24] LABS: URINE APPEARANCE SLCLOUDY; URINE BILIRUBIN NEGATIVE (NEGATIVE); URINE BLOOD NEGATIVE (NEGATIVE); URINE COLOR AMBER; URINE GLUCOSE (UA) NEGATIVE (NEGATIVE); URINE KETONE NEGATIVE (NEGATIVE); URINE NITRITE NEGATIVE (NEGATIVE); URINE PROTEIN NEGATIVE (NEGATIVE); URINE UROBILINOGEN NEGATIVE mg/dL (0.2-1.0)
[2017-05-05] MEDS: LACTULOSE 20 GM/30 ML UDC (FOR ORAL USE ONLY) PO SCH (09:39)
[2017-05-05] MEDS: SPIRONOLACTONE 25 MG TABLET (FP) PO SCH (09:40)
[2017-05-05] MEDS: DOCUSATE SODIUM 100 MG CAPSULE (FP) PO SCH (09:40)
[2017-05-05] MEDS: PRENATAL VITAMINS W/ FOLIC ACID TABLET (FP) PO SCH (09:40)
[2017-05-05] MEDS: FUROSEMIDE 40 MG TABLET (FP) PO SCH (09:40)
[2017-05-05] MEDS ORDERED: PATIENT'S OWN MEDICATION (NON-FORMULARY) (Spironolactone [Aldactone] 100 MG) PO SCH (10:00)
[2017-05-05] MEDS ORDERED: PATIENT'S OWN MEDICATION (NON-FORMULARY) (Lactulose [Lactulose] 30 ML) PO SCH (10:00)
[2017-05-05 10:56] LABS: INR 1.81 (0.82-1.09); PROTHROMBIN TIME (PATIENT) 20.5 SEC (9.98-11.88)
[2017-05-05 11:06] LABS: ALBUMIN 1.7 g/dl (3.4-5.0); ALK PHOS 104 U/L (45-117); ANION GAP 10 (8-16); BILIRUBIN,TOTAL 2.4 mg/dL (0.2-1.0); CO2 22 mmol/L (21-32); CREATININE 0.8 mg/dL (0.7-1.3); GLUCOSE,RANDOM 191 mg/dL (74-106); SGOT/AST 74 U/L (15-37); SGPT/ALT 37 U/L (12-78); TOT PROT 7.3 g/dl (6.4-8.2)
[2017-05-05 11:11] LABS: URINE LEUK ESTERASE Negative (NEGATIVE)
[2017-05-05] MEDS ORDERED: PNEUMOC 13-VAL CONJ-DIP CRM/PF 0.5 ML DISP.SYRIN IM ONE (12:00)
[2017-05-05] MEDS ORDERED: PNEUMOCOCCAL 23 VACCINE 0.5 ML VIAL IM ONE (12:00)
[2017-05-05] MEDS ORDERED: FLU VACCINE QUAD 60 MCG/0.5 ML (MDV 17-18) IM ONE (12:00)
--- NOTE | 2017-05-05 12:08 | HP ---
Psychiatrist Admission - Data Date of interview: 05/05/17 Admission source: [facility] Identifying data: This is the first [facility] inpatient rehabilitation admission for this 61 year old AA male, who is father of two, homeless, unemployed and supported on SSI benefits Medical History: Hep C (untreated), anemia, alcohol related seizures (last episode 2 months ago), liver cirrhosis, right ankle surgery in 2012, left knee surgery 5 years ago and fracture of left mandible. smokes cigarettes 4 a day. Psychiatric History: Patient reports was diagnosed with bipolar and depression, reports 5 psychiatric hospitalizations, with first in 2005, states he lost his job at that time and was sesrely depreeesed admitted to [facility], most recent hospitalization at [facility](04/09/17-05/04/17) for depression which was triggered by losing his girlfriend and nephew months apart , was discharged with referrel to [facility]. He reports being non-compliant with aftercare, obtains scripts visition ER at [facility]. He currently on Trazodone 50 mh po hs and Celexa 20 mg po hs. Physical/Sexual Abuse/Trauma History: Patient denies history of abuse. Vital Signs: Vital Signs - 24 hr 05/04/17 05/05/17 05/05/17 19:58 00:30 03:30 Temperature 98.5 F Pulse Rate 88 Respiratory 18 15 16 Rate Blood Pressure 114/75 05/05/17 05/05/17 07:11 10:00 Temperature 97.6 F Pulse Rate 108 H 79 Respiratory 16 Rate Blood Pressure 99/59 117/69 Allergies/Adverse Reactions: Allergies Allergy/AdvReac Type Severity Reaction Status Date / Time Fish Containing Products Allergy Mild Hives Verified 10/18/13 18:22 lactose Allergy Mild Verified 05/04/17 20:07 No Known Drug Allergies Allergy Verified 10/18/13 18:22 Date of last physical exam: 05/04/17 Concur with the findings of this exam: Yes - Substance Abuse/Tx History Hx Alcohol Use: Yes Hx Substance Use: Yes Substance Use Type: Alcohol (vodka 3 pints daily, ), Cocaine ($20-30 daily) Hx Substance Use Treatment: Yes Mental Status Exam - Mental Status Exam Alert and Oriented to: Time, Place, Person Cognitive Function: Fair Patient Appearance: Well Groomed Mood: Sad Affect: Appropriate, Mood Congruent Patient Behavior: Appropriate, Cooperative Speech Pattern: Clear, Appropriate Voice Loudness: Normal Thought Process: Intact, Goal Oriented Thought Disorder: Not Present Hallucinations: Denies Suicidal Ideation: Denies Homicidal Ideation: Denies Insight/Judgement: Fair Sleep: Fair Appetite: Fair Muscle strength/Tone: Normal Gait/Station: Normal Psychiatric Findings - Problem List ([place] 1, 2,3) (1) Alcohol dependence Current Visit: No Status: Acute (2) Cocaine dependence Current Visit: No Status: Acute (3) MDD (major depressive disorder) Current Visit: Yes Status: Acute (4) Bereavement Current Visit: Yes Status: Acute - Initial Treatment Plan Initial Treatment Plan: will continue Trazodone and Celexa, monitor rpogress as needed.
--- NOTE | 2017-05-05 12:27 | PN ---
[facility] Progress Note Note: reviewed labs bili high, albumion low cw chronic etoh random glc elevated - also cw etoh vs non fasting will order bgm X3 am suplena instead of ensure
--- NOTE | 2017-05-05 13:07 | EKG ---
Test Reason : Blood Pressure : / mmHG Vent. Rate : 090 BPM Atrial Rate : 090 BPM P-R Int : 152 ms QRS Dur : 084 ms QT Int : 376 ms P-R-T Axes : 051 -19 004 degrees QTc Int : 459 ms NORMAL SINUS RHYTHM NORMAL ECG WHEN COMPARED WITH ECG OF 04-MAR-2017 12:41, NONSPECIFIC T WAVE ABNORMALITY NO LONGER EVIDENT IN ANTERIOR LEADS Confirmed by KRAIG BENNETT, CHARO ([id number]) on 05/05/2017 1:07:37 PM Referred By: Jessica Dasilva Confirmed By:CHARO CORNELL MD
[2017-05-05] MEDS: traZODone HCL 50 MG TABLET (FP) PO SCH (21:15)
[2017-05-05] MEDS: THIAMINE HCL 100 MG TABLET (FP) PO SCH (21:15)
[2017-05-06] MEDS: SPIRONOLACTONE 25 MG TABLET (FP) PO SCH (10:06)
[2017-05-06] MEDS: CITALOPRAM HYDROBROMIDE 20 MG TABLET (FP) PO SCH (10:06)
[2017-05-06] MEDS: PRENATAL VITAMINS W/ FOLIC ACID TABLET (FP) PO SCH (10:06)
[2017-05-06] MEDS: LACTULOSE 20 GM/30 ML UDC (FOR ORAL USE ONLY) PO SCH (10:07)
[2017-05-06] MEDS: DOCUSATE SODIUM 100 MG CAPSULE (FP) PO SCH (10:07)
[2017-05-06] MEDS: FUROSEMIDE 40 MG TABLET (FP) PO SCH (10:30)
[2017-05-06] MEDS: THIAMINE HCL 100 MG TABLET (FP) PO SCH (21:20)
[2017-05-06] MEDS: traZODone HCL 50 MG TABLET (FP) PO SCH (21:20)
[2017-05-07] MEDS: DOCUSATE SODIUM 100 MG CAPSULE (FP) PO SCH (09:42)
[2017-05-07] MEDS: PRENATAL VITAMINS W/ FOLIC ACID TABLET (FP) PO SCH (09:42)
[2017-05-07] MEDS: CITALOPRAM HYDROBROMIDE 20 MG TABLET (FP) PO SCH (09:42)
[2017-05-07] MEDS: SPIRONOLACTONE 25 MG TABLET (FP) PO SCH (09:43)
[2017-05-07] MEDS: LACTULOSE 20 GM/30 ML UDC (FOR ORAL USE ONLY) PO SCH (09:44)
[2017-05-07] MEDS: THIAMINE HCL 100 MG TABLET (FP) PO SCH (21:19)
[2017-05-07] MEDS: traZODone HCL 50 MG TABLET (FP) PO SCH (21:19)
[2017-05-08] MEDS: PRENATAL VITAMINS W/ FOLIC ACID TABLET (FP) PO SCH (10:06)
[2017-05-08] MEDS: DOCUSATE SODIUM 100 MG CAPSULE (FP) PO SCH (10:06)
[2017-05-08] MEDS: LACTULOSE 20 GM/30 ML UDC (FOR ORAL USE ONLY) PO SCH (10:07)
[2017-05-08] MEDS: SPIRONOLACTONE 25 MG TABLET (FP) PO SCH (10:07)
[2017-05-08] MEDS: CITALOPRAM HYDROBROMIDE 20 MG TABLET (FP) PO SCH (10:07)
[2017-05-08] MEDS: traZODone HCL 50 MG TABLET (FP) PO SCH (21:14)
[2017-05-08] MEDS: THIAMINE HCL 100 MG TABLET (FP) PO SCH (21:14)
[2017-05-09] MEDS: LACTULOSE 20 GM/30 ML UDC (FOR ORAL USE ONLY) PO SCH ×3 (09:59→21:12)
[2017-05-09] MEDS: DOCUSATE SODIUM 100 MG CAPSULE (FP) PO SCH (09:59)
[2017-05-09] MEDS: PRENATAL VITAMINS W/ FOLIC ACID TABLET (FP) PO SCH (09:59)
[2017-05-09] MEDS: CITALOPRAM HYDROBROMIDE 20 MG TABLET (FP) PO SCH (09:59)
[2017-05-09] MEDS: SPIRONOLACTONE 25 MG TABLET (FP) PO SCH (10:49)
[2017-05-09] MEDS: THIAMINE HCL 100 MG TABLET (FP) PO SCH (21:12)
[2017-05-09] MEDS: traZODone HCL 50 MG TABLET (FP) PO SCH (21:13)
[2017-05-09] MEDS ORDERED: LACTULOSE 20 GM/30 ML UDC (FOR ORAL USE ONLY) PO SCH (22:00)
[2017-05-10] MEDS: LACTULOSE 20 GM/30 ML UDC (FOR ORAL USE ONLY) PO SCH ×3 (06:21→21:15)
[2017-05-10] MEDS: SPIRONOLACTONE 25 MG TABLET (FP) PO SCH (10:09)
[2017-05-10] MEDS: DOCUSATE SODIUM 100 MG CAPSULE (FP) PO SCH (10:09)
[2017-05-10] MEDS: CITALOPRAM HYDROBROMIDE 20 MG TABLET (FP) PO SCH (10:09)
[2017-05-10] MEDS: PRENATAL VITAMINS W/ FOLIC ACID TABLET (FP) PO SCH (10:09)
[2017-05-10 15:58] LABS: ALBUMIN 1.7 g/dl (3.4-5.0); ANION GAP 9 (8-16); CALCIUM 7.7 mg/dL (8.5-10.1); CO2 23 mmol/L (21-32); CREATININE 0.9 mg/dL (0.7-1.3); GLUCOSE,RANDOM 128 mg/dL (74-106); SGOT/AST 64 U/L (15-37); SGPT/ALT 36 U/L (12-78)
[2017-05-10 15:59] LABS: ALK PHOS 111 U/L (45-117); BILIRUBIN,TOTAL 2.3 mg/dL (0.2-1.0); TOT PROT 7.3 g/dl (6.4-8.2)
[2017-05-10 16:04] LABS: EOSINOPHIL 7.7 % (0-4.5); MCH 31.1 pg (25.7-33.7); MCHC 32.8 g/dl (32.0-35.9); MEAN CELL VOLUME 94.6 fl (80-96); MEAN PLT VOLUME 10.2 fl (7.5-11.1); NEUTROPHILS 43.4 % (42.8-82.8); PLATELET COUNT 51 K/MM3 (134-434); RDW 22.1 % (11.9-15.9); WHITE BLOOD COUNT 2.4 K/mm3 (4.0-10.0)
[2017-05-10 17:47] LABS: ANISOCYTOSIS 2+; HYPOCHROMIA FEW; PLATELET ESTIMATE DECREASED (NORMAL); POLYCHROMASIA F
[2017-05-10] MEDS: THIAMINE HCL 100 MG TABLET (FP) PO SCH (21:15)
[2017-05-10] MEDS: traZODone HCL 50 MG TABLET (FP) PO SCH (21:15)
[2017-05-11] MEDS: LACTULOSE 20 GM/30 ML UDC (FOR ORAL USE ONLY) PO SCH ×3 (06:11→21:23)
[2017-05-11] MEDS: CITALOPRAM HYDROBROMIDE 20 MG TABLET (FP) PO SCH (10:02)
[2017-05-11] MEDS: SPIRONOLACTONE 25 MG TABLET (FP) PO SCH (10:02)
[2017-05-11] MEDS: DOCUSATE SODIUM 100 MG CAPSULE (FP) PO SCH (10:02)
[2017-05-11] MEDS: PRENATAL VITAMINS W/ FOLIC ACID TABLET (FP) PO SCH (10:02)
[2017-05-11] MEDS: THIAMINE HCL 100 MG TABLET (FP) PO SCH (21:23)
[2017-05-11] MEDS: traZODone HCL 50 MG TABLET (FP) PO SCH (21:23)
[2017-05-12] MEDS: LACTULOSE 20 GM/30 ML UDC (FOR ORAL USE ONLY) PO SCH ×3 (05:41→21:16)
[2017-05-12] MEDS: SPIRONOLACTONE 25 MG TABLET (FP) PO SCH (10:04)
[2017-05-12] MEDS: CITALOPRAM HYDROBROMIDE 20 MG TABLET (FP) PO SCH (10:04)
[2017-05-12] MEDS: DOCUSATE SODIUM 100 MG CAPSULE (FP) PO SCH (10:04)
[2017-05-12] MEDS: PRENATAL VITAMINS W/ FOLIC ACID TABLET (FP) PO SCH (10:04)
--- NOTE | 2017-05-12 11:03 | PN ---
S Progress Note Note: inquires re ammonia note 72.3 fully aware, conversational aox3 will recheck full labs 05/16/17
[2017-05-12] MEDS: traZODone HCL 50 MG TABLET (FP) PO SCH (21:16)
[2017-05-12] MEDS: THIAMINE HCL 100 MG TABLET (FP) PO SCH (21:16)
[2017-05-13] MEDS: LACTULOSE 20 GM/30 ML UDC (FOR ORAL USE ONLY) PO SCH ×3 (06:10→21:18)
[2017-05-13] MEDS: DOCUSATE SODIUM 100 MG CAPSULE (FP) PO SCH (09:43)
[2017-05-13] MEDS: CITALOPRAM HYDROBROMIDE 20 MG TABLET (FP) PO SCH (09:43)
[2017-05-13] MEDS: SPIRONOLACTONE 25 MG TABLET (FP) PO SCH (09:43)
[2017-05-13] MEDS: PRENATAL VITAMINS W/ FOLIC ACID TABLET (FP) PO SCH (09:43)
[2017-05-13] MEDS: traZODone HCL 50 MG TABLET (FP) PO SCH (21:18)
[2017-05-13] MEDS: THIAMINE HCL 100 MG TABLET (FP) PO SCH (21:19)
[2017-05-13] MEDS: MENTHOL/PHENOL 1 EACH UD MM PRN (21:20)
[2017-05-14] MEDS: LACTULOSE 20 GM/30 ML UDC (FOR ORAL USE ONLY) PO SCH ×3 (06:27→21:38)
[2017-05-14] MEDS: SPIRONOLACTONE 25 MG TABLET (FP) PO SCH (10:03)
[2017-05-14] MEDS: DOCUSATE SODIUM 100 MG CAPSULE (FP) PO SCH (10:03)
[2017-05-14] MEDS: PRENATAL VITAMINS W/ FOLIC ACID TABLET (FP) PO SCH (10:03)
[2017-05-14] MEDS: CITALOPRAM HYDROBROMIDE 20 MG TABLET (FP) PO SCH (10:03)
[2017-05-14] MEDS: traZODone HCL 50 MG TABLET (FP) PO SCH (21:38)
[2017-05-14] MEDS: THIAMINE HCL 100 MG TABLET (FP) PO SCH (21:38)
[2017-05-15] MEDS: LACTULOSE 20 GM/30 ML UDC (FOR ORAL USE ONLY) PO SCH ×3 (06:18→21:18)
[2017-05-15] MEDS: CITALOPRAM HYDROBROMIDE 20 MG TABLET (FP) PO SCH (09:54)
[2017-05-15] MEDS: SPIRONOLACTONE 25 MG TABLET (FP) PO SCH (09:54)
[2017-05-15] MEDS: PRENATAL VITAMINS W/ FOLIC ACID TABLET (FP) PO SCH (09:54)
[2017-05-15] MEDS: DOCUSATE SODIUM 100 MG CAPSULE (FP) PO SCH (09:55)
[2017-05-15] MEDS: traZODone HCL 50 MG TABLET (FP) PO SCH (21:18)
[2017-05-15] MEDS: THIAMINE HCL 100 MG TABLET (FP) PO SCH (21:18)
[2017-05-15] MEDS: MENTHOL/PHENOL 1 EACH UD MM PRN (21:56)
[2017-05-16] MEDS: LACTULOSE 20 GM/30 ML UDC (FOR ORAL USE ONLY) PO SCH ×3 (05:59→21:19)
[2017-05-16 10:02] LABS: ALBUMIN 1.8 g/dl (3.4-5.0); ALK PHOS 115 U/L (45-117); ANION GAP 5 (8-16); BILIRUBIN,TOTAL 2.3 mg/dL (0.2-1.0); CALCIUM 8.3 mg/dL (8.5-10.1); CO2 26 mmol/L (21-32); CREATININE 0.9 mg/dL (0.7-1.3); GLUCOSE,RANDOM 82 mg/dL (74-106); SGOT/AST 59 U/L (15-37); SGPT/ALT 35 U/L (12-78); TOT PROT 7.6 g/dl (6.4-8.2)
[2017-05-16] MEDS: CITALOPRAM HYDROBROMIDE 20 MG TABLET (FP) PO SCH (10:03)
[2017-05-16] MEDS: DOCUSATE SODIUM 100 MG CAPSULE (FP) PO SCH (10:03)
[2017-05-16] MEDS: PRENATAL VITAMINS W/ FOLIC ACID TABLET (FP) PO SCH (10:03)
[2017-05-16] MEDS: SPIRONOLACTONE 25 MG TABLET (FP) PO SCH (10:03)
[2017-05-16] MEDS: MENTHOL/PHENOL 1 EACH UD MM PRN ×2 (10:05→21:21)
[2017-05-16 14:05] LABS: MCHC 32.7 g/dl (32.0-35.9); MEAN CELL VOLUME 94.7 fl (80-96); PLATELET COUNT 54 K/MM3 (134-434); RDW 22.1 % (11.9-15.9); WHITE BLOOD COUNT 3.3 K/mm3 (4.0-10.0)
[2017-05-16 17:12] LABS: PLATELET ESTIMATE DECREASED (NORMAL)
[2017-05-16 17:13] LABS: ANISOCYTOSIS 2+; HYPOCHROMIA 1+; MACROCYTOSIS 1+; MICROCYTOSIS 1+; REACTIVE LYMPHOCYTES 3 % (0-80)
[2017-05-16] MEDS: THIAMINE HCL 100 MG TABLET (FP) PO SCH (21:19)
[2017-05-16] MEDS: traZODone HCL 50 MG TABLET (FP) PO SCH (21:19)
[2017-05-17] MEDS: LACTULOSE 20 GM/30 ML UDC (FOR ORAL USE ONLY) PO SCH ×3 (05:56→21:19)
[2017-05-17] MEDS: CITALOPRAM HYDROBROMIDE 20 MG TABLET (FP) PO SCH (09:57)
[2017-05-17] MEDS: SPIRONOLACTONE 25 MG TABLET (FP) PO SCH (09:58)
[2017-05-17] MEDS: PRENATAL VITAMINS W/ FOLIC ACID TABLET (FP) PO SCH (09:58)
[2017-05-17] MEDS: DOCUSATE SODIUM 100 MG CAPSULE (FP) PO SCH (09:58)
--- NOTE | 2017-05-17 11:31 | PN ---
Psychiatric Progress Note Vital Signs: Vital Signs Period Temp Pulse Resp BP Sys/Castillo Pulse Ox Last 24 Hr 98.3 F 90 16-18 103/65 Date of Session: 05/17/17 Chief Complaint:: Discharge Note HPI: Patient addressing Alcohol and Cocaine Dependence comorbid with Nicotine Dependence, MDD and Bereavement ROS: Anemia, Hep C, Alcohol-related seizure, Cirrhosis of the liver Current Medications: Active Medications Generic Name Dose Route Start Last Admin Trade Name Freq PRN Reason Stop Dose Admin Al Hydroxide/Mg Hydroxide 30 ml 05/04/17 20:38 Mylanta Oral Suspension - PO Q6H PRN DYSPEPSIA Citalopram Hydrobromide 20 mg 05/06/17 10:00 05/17/17 09:57 Celexa - PO 20 mg DAILY TERENCE Administration Docusate Sodium 200 mg 05/05/17 10:00 05/17/17 09:58 Colace - PO 200 mg DAILY TERENCE Administration Eucalyptus/Menthol/Phenol/Sorbitol 1 each 05/04/17 20:38 05/16/17 21:21 Cepastat Lozenge - MM 1 each Q4H PRN Administration SORE THROAT Guaifenesin 10 ml 05/04/17 20:38 Robitussin Dm - PO Q6H PRN COUGH Hydroxyzine Pamoate 25 mg 05/04/17 20:38 Vistaril - PO Q4H PRN AGITATION Lactulose 20 gm 05/09/17 14:00 05/17/17 05:56 Cephulac (Oral Use) PO 20 gm TID TERENCE Administration Loperamide HCl 4 mg 05/04/17 20:38 Imodium - PO Q6H PRN DIARRHEA Magnesium Citrate 300 ml 05/04/17 20:38 Citroma - PO Q48H PRN CONSTIPATION Magnesium Hydroxide 30 ml 05/04/17 20:38 Milk Of Magnesia - PO DAILY PRN CONSTIPATION Multivit/Folic Acid/Iron 1 tab 05/05/17 10:00 05/17/17 09:58 Vitamins (Sjr) - PO 1 tab DAILY TERENCE Administration Pseudoephedrine/Triprolidine 1 combo 05/04/17 20:38 Actifed - PO TID PRN NASAL CONGESTION Spironolactone 100 mg 05/05/17 10:00 05/17/17 09:58 Aldactone - PO 100 mg DAILY TERENCE Administration Thiamine HCl 100 mg 05/04/17 22:00 05/16/17 21:19 Vitamin B1 - PO 100 mg HS TERENCE Administration Trazodone HCl 50 mg 05/04/17 22:45 05/16/17 21:19 Desyrel - PO 50 mg HS TERENCE Administration Current Side Effect: No Lab tests ordered: Yes Lab tests reviewed: Yes Provider note:: Patient will complete this program on 05/18/17. He has met his treatment goals and will continue to address his issues in terminologist treatment at [facility] at [address] [place] [address]. Told tag writer that from his participation in this program, he has learned among other things that due to having Cirrhosis of the liver, he needs to stop drinking if he wants to live longer. He responded well to Celexa 20 mg po daily and Trazadone 50 mg po HS. Scripts for 30 days supply of medications will be electronically transmitted to [facility] at [address] [place] [address]. He is stable for discharge on 05/18/17 Total face to face time:: 35 Mental Status Exam - Mental Status Exam Alert and Oriented to: Time, Place, Person Cognitive Function: Fair Patient Appearance: Well Groomed Mood: Hopeful, Euthymic Affect: Appropriate Patient Behavior: Cooperative Speech Pattern: Clear Voice Loudness: Normal Thought Process: Intact, Goal Oriented Thought Disorder: Not Present Hallucinations: Denies Suicidal Ideation: Denies Homicidal Ideation: Denies Insight/Judgement: Fair Sleep: Fair Appetite: Fair Muscle strength/Tone: Normal Gait/Station: Normal Psychiatric Treatment Plan - Problem List (1) Alcohol dependence Current Visit: No (2) Cocaine dependence Current Visit: No (3) Nicotine dependence Current Visit: No Qualifiers: Nicotine product type: cigarettes Substance use status: uncomplicated Qualified Code(s): F17.210 - Nicotine dependence, cigarettes, uncomplicated; F17.210 - Nicotine dependence, cigarettes, uncomplicated (4) MDD (major depressive disorder) Current Visit: Yes (5) Bereavement Current Visit: Yes (6) Cirrhosis Current Visit: Yes (7) Hepatitis C Current Visit: Yes Initial treatment plan: Patient will be discharged tomorrow and referred to [facility] for correction treatment
[2017-05-17] MEDS: traZODone HCL 50 MG TABLET (FP) PO SCH (21:19)
[2017-05-17] MEDS: THIAMINE HCL 100 MG TABLET (FP) PO SCH (21:19)
[2017-05-18] MEDS: LACTULOSE 20 GM/30 ML UDC (FOR ORAL USE ONLY) PO SCH (06:13)
[2017-05-18 06:49] VITALS: BP 102/69; PULSE 94; TEMP 98.6
[2017-05-18] MEDS: CITALOPRAM HYDROBROMIDE 20 MG TABLET (FP) PO SCH (09:55)
[2017-05-18] MEDS: DOCUSATE SODIUM 100 MG CAPSULE (FP) PO SCH (09:55)
[2017-05-18] MEDS: SPIRONOLACTONE 25 MG TABLET (FP) PO SCH (09:55)
[2017-05-18] MEDS: PRENATAL VITAMINS W/ FOLIC ACID TABLET (FP) PO SCH (09:55)
== END 2017-05-18 10:00 | disposition home or self-care (01) | DRG 772 ==
LOC: YASAS 19:10 → Y5N 20:20
PROVIDERS: ADMIT Psychiatry & Neurology Psychiatry; ATTEND Psychiatry & Neurology Psychiatry
PROC: HZ42ZZZ Group Counseling for Substance Abuse Treatment, Cognitive-Behavioral (ICD-10-PCS; principal; 2017-05-04)
DX: F10.20 Alcohol dependence, uncomplicated (principal); F14.20 Cocaine dependence, uncomplicated; F17.210 Nicotine dependence, cigarettes, uncomplicated; F33.9 Major depressive disorder, recurrent, unspecified; K74.60 Unspecified cirrhosis of liver; B18.2 Chronic viral hepatitis C; D64.9 Anemia, unspecified; Z63.4 Disappearance and death of family member; Z91.011 Allergy to milk products; Z91.013 Allergy to seafood; Z86.69 Personal history of other diseases of the nervous system and sense organs; Z87.898 Personal history of other specified conditions; Z59.0 Homelessness
CPT/HCPCS: 36415; 80053; 81003; 82140; 85025; 85610; 86593; 90688; 90732; 93005; 93010; G0008; G0009